=== PATIENT | male | born 1955 | race Caucasian/White ===

== ENCOUNTER 2017-10-03 08:30 | Day surgery (SDC) | payer OTHER ==
[~2017-10-03] VITALS: Ht 193 cm; Wt 99.9 kg
[~2017-10-03 08:30] MED LIST: ATOR40TA PO; LISI20 PO; SERT50
== END 2017-10-03 10:35 | disposition home or self-care (01) ==
LOC: ORSCSDS 08:30
DX: Z12.11 Encounter for screening for malignant neoplasm of colon (principal); Z86.010 Personal history of colon polyps; D12.2 Benign neoplasm of ascending colon; I10 Essential (primary) hypertension; E78.5 Hyperlipidemia, unspecified; F17.210 Nicotine dependence, cigarettes, uncomplicated; Z79.899 Other long term (current) drug therapy
CPT/HCPCS: 82947; 88305; 93005; 93010; J7120